=== PATIENT | female | born 1990 | race Caucasian/White ===

== ENCOUNTER 2017-04-29 20:01 | Outpatient (CLI) | payer OTHER ==
[~2017-04-29] VITALS: Ht 149.9 cm; Wt 82.9 kg
[~2017-04-29 20:01] MED LIST: BACTDS PO; CEPH-443 PO; DENIES; HYDR-902 PO; IBUP-1542 PO
[2017-04-29] MEDS ORDERED: FER325 PO (21:34)
[2017-04-29] MEDS ORDERED: PRENAT PO (21:34)
[2017-04-29 21:35] VITALS: BP 125/75; PULSE 97; RESP 19; Ht 149.9 cm; Wt 82.9 kg
--- NOTE | 2017-04-29 22:42 | RADRPT ---
PROCEDURE: OB ultrasound for biophysical profile CLINICAL INDICATION: 27 years of age, female. Lower abdominal wall incisional pain TECHNIQUE: Multiple sonographic images of the pelvis were obtained. Transabdominal view of the gr avid uterus are available for review. The images were reviewed on a PACS workstation. COMPARISON: None available. FINDINGS: MADHURI June 03, 2017 EGA by MADHURI 35 weeks 0 days breathing movement = 2/2 tone = 2/2 motion = 2/2 Amniotic fluid = 2/2 CHITRA = 10 cm Single live intrauterine in cephalic presentation. heart rate measures 148 bpm. Right lateral placenta, grade 2. Focused ultrasound of the anterior uterine wall in the region of the scar demonstrates thi nning of the myometrium measuring 0.2 cm. More superiorly in the uterine body, the anterior myometr ium measures 0.5 cm. IMPRESSION: 1. Single living fetus in cephalic presentation. 2. Biophysical profile = 8/8. 3. CHITRA = 10 cm. 4. Anterior placenta grade 2 5. Focused ultrasound of the anterior uterine wall in the region of the scar demonstrates focal thinning of the myometrium measuring 0.2 cm. If there is concern for myometrial dehiscence, th is could better be evaluated with MRI. Findings were discussed with Linda Harris RN by Dr. Abbey Johns on April 29, 2017 at 10:35 PM. RPTAT: HCTS Physician Trip Date Time Electronically viewed and signed by Physician Trip on 04/29/2017 22:41 CS/
[2017-04-29] MEDS ORDERED: HYDROCODONE/APAP (5/325) TAB PO ONE (23:00)
--- NOTE | 2017-04-29 23:23 | PN ---
Triage Information Date/Time April 29, 2017 Reason for visit: Abd/pelvic pain Weeks of Gestation 35w /Para 8/4 Diabetes: none Additional information 27 y.o. A3 receiving are at [facility] as she is high risk as she has had 4 prior c-sections, had a large" window" in the uterus at her last one and was told not to get again. Pt came today as she has annamaria having pain in the incisional area for a while now and is very worried about what is going on and wasn't reassured at [facility]. +FM. No bleeding or leaking. Doesn't know what contractions feel like. PMHx: none. PSHx: x 4. LSC cholecystectomy. NKDA. Objective Vital Signs Date Time Temp Pulse Resp B/P Pulse Ox O2 Delivery O2 Flow Rate FiO2 04/29/17 21:35 98.1 97 19 125/75 Room Air Heart Rate: 130's Heart Rate Comments With accels to 180 bpm. No decels. Contractions: None Exam Deferred. Results/Medications Imaging Results BPP 04/13. CHITRA 10 cm. VTX. Lower uterine wall appears intact and thin. Disposition: Discharge Assessment/Plan A: IUP at 35 weeks. Prior x 4. False labor. P: Pt was feeling much better once she was reassured that appears well at this time. Pt has a copy of BTL papers and was reminded of the importance of making sure she has them with her at all times. If she starts ragini it is important she immediately go to [facility]. LIBIA BRUMFIELD MD Apr 29, 2017 23:23
--- NOTE | 2017-04-29 23:25 | TRIAGE ---
OB Triage Datetime Report Generated by CPN: 04/29/2017 23:25 Datetime: 04/29/2017 20:16 Time of Arrival: 04/29/2017 19:55 EGA: 35.0 Arrived By: Wheelchair Arrived From: Home Chief Complaint: Abdominal pain. Movement: Present Contractions: Denies/Absent Contractions: NONE Rupture of Membranes: Denies Vaginal Bleeding: None Vaginal Discharge: Denies Recent Sexual Intercouse: Denies Abdominal Trauma: Not Applicable Patient Complaints: Other Time Provider Notified: 04/29/2017 21:05 Provider Notified: Dr. Richardson Initial Plan: CEFM Datetime: 04/29/2017 20:13 Stage of : OB Triage Assessment Type: Triage Maternal Assessment Level of Consciousness: Fully Conscious DTR's/Clonus: DTRs 2+; No Clonus Headache: Denies Blurred Vision: No Respiratory Effort: Unlabored; Regular Rhythm; Equal Expansion Breath Sounds, Left: Clear and Equal Breath Sounds, Right: Clear and Equal Nausea/Vomiting: Denies RUQ Epigastric Pain: Denies Lower Extremities Edema: None Degree: None Upper Extremities Edema: None Degree: None Facial Edema: None Temperature Route: Oral Fall Risk Assessment History of Falling: (0) No Secondary Diagnosis: (0) No Ambulatory Aid: (0) Bedrest/Nurse Assist IV Therapy: (0) No Gait: (0) Normal/Bedrest/Immobile Mental Status: (0) Oriented to Own Ability Fall Score: 0 Fall Risk Score Definition: No Risk: No action required Pain Assessment Pain Scale: 8 Pain Presence: Constant Pain Type: Sharp (Annotations: Pulling down below in her vaginal area) Pain Location: Abdomen; Other (Annotations: incisional) Pain Assessment Comments: Pt states she can't even walk because of the pain.
== END 2017-04-29 23:15 | disposition home or self-care (01) ==
LOC: OBT 20:01 → L-D 20:03 → OBT 23:15
PROVIDERS: ATTEND Obstetrics & Gynecology
DX: O26.893 Other specified pregnancy related conditions, third trimester (principal); Z3A.35 35 weeks gestation of pregnancy; R10.2 Pelvic and perineal pain
CPT/HCPCS: 76818; Z7500; G0463

== ENCOUNTER 2017-05-21 12:33 | Inpatient (IN) | payer OTHER ==
[~2017-05-21] VITALS: Ht 149.9 cm; Wt 83.0 kg
[~2017-05-21 12:33] MED LIST changes: -BACTDS PO; -CEPH-443 PO; -DENIES; +FER325 PO; -HYDR-902 PO; -IBUP-1542 PO; +PRENAT PO
[2017-05-21 13:06] VITALS: Ht 149.9 cm; Wt 83.0 kg
[2017-05-21] MEDS ORDERED: LACTATED RINGER'S 1,000 ML IV SCH (13:28)
[2017-05-21] MEDS ORDERED: OXYTOCIN 30 UNITS/LR 500 ML IV SCH (13:30)
[2017-05-21] MEDS ORDERED: CARBOPROST 250 MCG INJ IM PRN ×2 (13:30→21:00)
[2017-05-21] MEDS ORDERED: OXYTOCIN 30 UNITS/LR 500 ML IV PRN ×2 (13:30→21:00)
[2017-05-21] MEDS ORDERED: CEFAZOLIN 2 GM/50 ML (PMX) 50 ML IV SCH (13:30)
[2017-05-21] MEDS ORDERED: MISOPROSTOL 200 MCG TAB PR PRN ×2 (13:30→21:00)
[2017-05-21] MEDS ORDERED: METHYLERGONOVINE 0.2 MG INJ IM PRN ×2 (13:30→21:00)
[2017-05-21 15:00] LABS: BASOPHILS % 0.4 % (0.0-2.0); EOSINOPHILS # 0.2 10^3/ul (0.0-0.5); EOSINOPHILS % 1.9 % (0.0-7.0); HEMATOCRIT 29.9 % (37.0-47.0); HEMOGLOBIN 9.6 g/dl (12.0-16.0); LYMPHOCYTES % 20.1 % (15.0-51.0); MEAN CORPUSCULAR HEMOGLOBIN 25.7 pg (29.0-33.0); MEAN CORPUSCULAR HGB CONC 32.1 g/dl (32.0-37.0); MEAN CORPUSCULAR VOLUME 80.2 fl (82.0-101.0); MEAN PLATELET VOLUME 9.2 fl (7.4-10.4); MONOCYTE # 0.8 10^3/ul (0.3-0.9); MONOCYTES % 8.1 % (0.0-11.0); NEUTROPHIL # 6.8 10^3/ul (1.6-7.5); NEUTROPHILS % 68.9 % (39.0-77.0); PLATELET COUNT 360 10^3/UL (140-415); RED BLOOD COUNT 3.73 10^6/ul (4.20-5.40); RED CELL DISTRIBUTION WIDTH 16.2 % (11.5-14.5); WHITE BLOOD COUNT 9.9 10^3/ul (4.8-10.8)
[2017-05-21 15:16] LABS: INR 0.95; PROTIME 12.7 Sec (12.2-14.2)
[2017-05-21 15:17] LABS: PARTIAL THROMBOPLASTIN TIME 27.7 Sec (25.0-35.0)
[2017-05-21 15:24] LABS: ADD UMIC YES; UR ASCORBIC ACID NEGATIVE (NEGATIVE); UR BACTERIA FEW /HPF (NONE SEEN); UR BILIRUBIN (Dip) NEGATIVE (NEGATIVE); UR BLOOD (Dip) NEGATIVE (NEGATIVE); UR CLARITY SLIGHTLY CLOUDY (CLEAR); UR COLOR YELLOW (YELLOW); UR GLUCOSE (Dip) NEGATIVE (NEGATIVE); UR KETONES (Dip) TRACE mg/dL (NEGATIVE); UR LEUKOCYTE ESTERASE (Dip) 3+ Leu/ul (NEGATIVE); UR NITRITE (Dip) POSITIVE (NEGATIVE); UR RBC 1 /HPF (0-5); UR SPECIFIC GRAVITY (Dip) 1.015 (1.003-1.030); UR SQUAMOUS EPITHELIAL CELL FEW /HPF (FEW); UR TOTAL PROTEIN (Dip) NEGATIVE (NEGATIVE); UR UROBILINOGEN (Dip) NEGATIVE (NEGATIVE); UR WBC CLUMPS FEW /HPF (NONE SEEN)
[2017-05-21] MEDS ORDERED: OXYTOCIN 30 UNITS/LR 500 ML BAG IV ONE (16:30)
[2017-05-21] MEDS ORDERED: CEFAZOLIN 1 GM INJ ONE (16:30)
[2017-05-21] MEDS ORDERED: ONDANSETRON 4 MG INJ ONE (16:46)
[2017-05-21] MEDS ORDERED: morphine SULFATE/PF (10 MG/10 ML) INJ ONE (16:46)
[2017-05-21] MEDS ORDERED: PHENYLephrine (100 MCG/ML) 5ML SYG ONE ×2 (16:46→17:23)
[2017-05-21] MEDS ORDERED: FENTAnyl 50 MCG/ML VIAL ONE (17:22)
--- NOTE | 2017-05-21 17:55 | OPPN ---
Date/Time of Note Date/Time of Note DATE: 05/21/17 TIME: 17:53 Operative Report Free Text/Dictation Previous c/sectionx4 in labor Multipara desires sterilization Preoperative Diagnosis Previous c/sectionx4 in labor Multipara desires sterilization Postoperative Diagnosis Previous c/sectionx4 in labor Multipara desires sterilization Operation/Procedure Performed Repeat c/section +Bilateral tubal ligation Provider: VIRGEN HORN M.D. occupational therapist's assistant: PAIGE SOLANO MD Anesthesia Type: spinal Estimated blood loss: other (500) Transfusion Required: no Specimen: none Grafts/Implants: none Complications: no VIRGEN HORN M.D. May 21, 2017 17:55
--- NOTE | 2017-05-21 17:56 | HP ---
Date/Time of Note Date/Time of Note DATE: 05/21/17 TIME: 17:55 OB - History Hx of Present Free Text/Dictation Previous c/sectionx4 in labor Multipara desires sterilization : 5 Para: 4 Care: Good Care Ultrasounds: Normal mid trimester US Obstetrical Complications: None Medical Complications: None Past Family/Social History * Past Medical, Surgical, Family and Obstetric Histories reviewed from chart. OB Admission Exam Physical Exam Abdomen: WNL Reflexes: Normal Cervical Dilatation: 2cm Effacement: 25% Station: -2 Membranes: Intact Heart Rate: 140's Accelerations: Accelerations Present Decelerations: No Decelerations Varibility: Moderate Last 72 hours Lab Results CBC & BMP 05/21/17 14:10 OB Assessment/Plan Reason for admission: section Plan: Section VIRGEN HORN M.D. May 21, 2017 17:56
--- NOTE | 2017-05-21 17:58 | OPR ---
Operative Report Planned Procedure Free Text/Dictation Previous c/sectionx4 in labor Multipara desires sterilization Procedure date May 21, 2017 Procedure(s) Repeat c/section+ Bilateral tubal ligation Performed by gage Assisting provider: PAIGE SOLANO MD Anesthesiologist: KARUNA SUAZO MD Pre-procedure diagnosis Previous c/sectionx4 in labor Multipara desires sterilization Anesthesia Type: spinal Procedure Description Under satisfactory [] anesthesia, the patient was prepped and draped and placed in a supine position, tilted to the left. Pfannenstiel incision was made, carried through the subcutaneous tissue. Bleeders brought under control with electrocautery. Fascia incised to the length of the incision. Rectus muscles from the fascia, divided midline. Peritoneum exposed, entered through a transverse incision. Exploration of abdomen revealed gravid uterus. Bladder flap was developed. Transverse incision was made in the lower segment of the uterus. Amniotic sac ruptured. [] amniotic fluid noted. [] Nasal oropharyngeal suction was performed. The baby was handed to the team for immediate attention. The placenta was delivered manually intact. Uterine cavity was cleaned with wet sponge and drainage established. Uterus closed in 2 layers using [] in continuous fashion. Peritoneal cavity irrigated with warm saline. Sponge, needle and instrument count reported to be correct. Abdominal peritoneum closed with [] continuously. Rectus muscle approximated with []. Fascia closed with [], and skin closed with dermoband. Estimated blood loss [600 ]mL. Urine bag contained []mL of urine A large window seen in lower uterine segment Post-Procedure Findings: Live Baby [], Apgars [] and [], weight [], position [], [] presentation []cord. Estimated blood loss: other (500) Grafts/Implants: no Complication(s): no Pt Condition post procedure: stable Disposition: PACU Physician Certification I, the undersigned physician, hereby certify that I have discussed the procedure described in this consent form with this patient (or the patient's legal escrow representative), including: * The risk and benefits of the procedure; * Any adverse reactions that may reasonably be expected to occur; * Any alternative efficacious methods of treatment which may be medically viable ; * The potential problems that may occur during recuperation; * Potential for blood transfusion and associated risks/benefits; and * Any research or economic interest I may have regarding this treatment. I further certify that the patient/legally responsible person was encouraged to ask question and that all questions were answered. VIRGEN HORN M.D. May 21, 2017 17:58
[2017-05-21] MEDS ORDERED: KETOROLAC 30 MG INJ ONE (18:33)
[2017-05-21] MEDS: KETOROLAC 30 MG INJ IV PRN (18:53)
[2017-05-21] MEDS ORDERED: ONDANSETRON 4 MG INJ IV PRN (19:00)
[2017-05-21] MEDS ORDERED: DIPHENHYDRAMINE 50 MG INJ IV PRN (19:00)
[2017-05-21] MEDS ORDERED: NALOXONE (0.4 MG/ML) INJ IV PRN (19:00)
[2017-05-21] MEDS: morphine 2 MG INJ IV PRN (19:51)
[2017-05-21 20:30] VITALS: BP 110/67; PULSE 77; RESP 21
[2017-05-21] MEDS: SENNA/DOCUSATE NA (8.6MG/50MG) TAB PO SCH (21:00)
[2017-05-21] MEDS ORDERED: LANOLIN 7 GM TUBE TOP PRN (21:00)
[2017-05-21] MEDS: LACTATED RINGER'S 1,000 ML IV SCH (22:08)
[2017-05-21 23:45] VITALS: BP 108/63; PULSE 91; RESP 20
[2017-05-22 03:30] VITALS: BP 95/67; PULSE 85; RESP 18
[2017-05-22] MEDS: KETOROLAC 30 MG INJ IV PRN ×2 (05:20→12:14)
[2017-05-22] MEDS: LACTATED RINGER'S 1,000 ML IV SCH ×2 (06:01→13:55)
[2017-05-22 08:00] VITALS: BP 108/62; PULSE 89; RESP 18
[2017-05-22] MEDS: SENNA/DOCUSATE NA (8.6MG/50MG) TAB PO SCH ×2 (09:04→21:18)
[2017-05-22 09:27] LABS: BASOPHILS % 0.2 % (0.0-2.0); EOSINOPHILS # 0.2 10^3/ul (0.0-0.5); EOSINOPHILS % 1.6 % (0.0-7.0); HEMATOCRIT 28.4 % (37.0-47.0); HEMOGLOBIN 8.9 g/dl (12.0-16.0); LYMPHOCYTES # 1.5 10^3/ul (0.8-2.9); LYMPHOCYTES % 16.2 % (15.0-51.0); MEAN CORPUSCULAR HEMOGLOBIN 25.2 pg (29.0-33.0); MEAN CORPUSCULAR HGB CONC 31.3 g/dl (32.0-37.0); MEAN CORPUSCULAR VOLUME 80.5 fl (82.0-101.0); MEAN PLATELET VOLUME 9.4 fl (7.4-10.4); MONOCYTE # 0.5 10^3/ul (0.3-0.9); MONOCYTES % 5.7 % (0.0-11.0); NEUTROPHILS % 75.9 % (39.0-77.0); PLATELET COUNT 329 10^3/UL (140-415); RED BLOOD COUNT 3.53 10^6/ul (4.20-5.40); RED CELL DISTRIBUTION WIDTH 16.4 % (11.5-14.5); WHITE BLOOD COUNT 9.3 10^3/ul (4.8-10.8)
[2017-05-22 12:00] VITALS: BP 133/68; PULSE 88; RESP 18
[2017-05-22] MEDS: IBUPROFEN 600 MG TAB PO SCH ×3 (12:00→23:47)
[2017-05-22] MEDS: morphine 2 MG INJ IV PRN (15:44)
[2017-05-22 16:00] VITALS: BP 127/71; PULSE 91; RESP 16
[2017-05-22 20:30] VITALS: BP 117/56; RESP 18
[2017-05-23 04:10] VITALS: BP 118/61; PULSE 77; RESP 18
[2017-05-23] MEDS: IBUPROFEN 600 MG TAB PO SCH ×3 (05:32→17:58)
[2017-05-23 08:03] VITALS: BP 121/66; PULSE 80; RESP 18
[2017-05-23] MEDS: SENNA/DOCUSATE NA (8.6MG/50MG) TAB PO SCH ×2 (09:11→21:00)
[2017-05-23] MEDS: OXYCODONE/ACETAMINOPHEN (5/325) TAB PO PRN ×2 (10:08→20:01)
[2017-05-23 16:00] VITALS: BP 129/72; PULSE 65; RESP 19
[2017-05-23 19:45] VITALS: BP 126/66; PULSE 84; RESP 18
[2017-05-24 03:30] VITALS: BP 133/74; PULSE 80; RESP 18
[2017-05-24] MEDS: IBUPROFEN 600 MG TAB PO SCH ×3 (05:34→11:35)
[2017-05-24 08:00] VITALS: BP 131/72; PULSE 77; RESP 18
[2017-05-24] MEDS ORDERED: DIPHTH/TET/ACEL PERTUSS (ADULT) 0.5 ML VIAL IM* ONE (09:00)
[2017-05-24] MEDS: SENNA/DOCUSATE NA (8.6MG/50MG) TAB PO SCH (09:10)
--- NOTE | 2017-05-24 12:07 | QN ---
Documentation Comment this is late entry for 05/23 pod2 pt doing well vss exam wnl a/p pod 2 continue care PÉREZ MCDONALD MD May 24, 2017 12:07
--- NOTE | 2017-05-24 12:24 | PD.PPDC ---
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
--- NOTE | 2017-05-24 12:25 | DS ---
Date/Time of Note Date/Time of Note DATE: 05/24/17 TIME: 12:24 Obstetrical Discharge Record Final Diagnosis Final Diagnosis: Term delivered Section Section: Repeat Primary Indication repeat c/section with BTL Condition on Discharge Physical Assessment Voiding: Yes Bowel Movement: Yes Breast: Soft, non-tender Fundus: Firm Abdomen and Incision: Calf Tenderness: No Patient Condition: Stable PÉREZ MCDONALD MD May 24, 2017 12:25
--- NOTE | 2017-05-25 09:09 | HP ---
DATE OF ADMISSION: 05/21/2017 HISTORY OF PRESENT ILLNESS: The patient is a 27-year-old, 5, para 4, at 37+ weeks gestational age with history of 4 previous C-sections, status post falling, admitted to the labor and delivery with chief complaint of contractions and abdominal pain. PAST MEDICAL HISTORY: Denies. PAST SURGICAL HISTORY: 4 previous C-sections. ALLERGIES: NKDA. PHYSICAL EXAMINATION: VITAL SIGNS: Stable. GENERAL: Exam normal. ABDOMEN: Not tender, not distended. Gravid genital exam. Cervix was dilated 2 cm, 25 percent, and -2. ASSESSMENT AND PLAN: The patient is a 27-year-old, 5, para 4, at 37+ weeks gestational age admitted in labor. The patient consented for repeat section and bilateral tubal ligation. The risk and benefit discussed. Consent signed. Patient was taken to the operating room. Dictated By: Christian Berman MD /[email or web address]/[email or web address] /Document#: [id number]
[2017-05-25 13:46] LABS: RUBELLA ANTIBODY - IGG 1.47 index
== END 2017-05-24 13:35 | disposition home or self-care (01) | DRG 766 ==
LOC: OBT 12:33 → L-D 12:35 → OBT 13:26 → L-D 16:38 → PP1 20:19
PROVIDERS: ADMIT Obstetrics & Gynecology; ATTEND Obstetrics & Gynecology
PROC: 0UB70ZZ Excision of Bilateral Fallopian Tubes, Open Approach (ICD-10-PCS; 2017-05-21)
PROC: 10D00Z1 Extraction of Products of Conception, Low, Open Approach (ICD-10-PCS; principal; 2017-05-21 17:00)
DX: O34.211 Maternal care for low transverse scar from previous cesarean delivery (principal); Z30.2 Encounter for sterilization; Z37.0 Single live birth; Z3A.37 37 weeks gestation of pregnancy
CPT/HCPCS: 81001; 85025; 85610; 85730; 86592; 86703; 86762; 86850; 86900; 86901; 86920; 87340; 88302; 90715; 94760; 99464; G0463; J0690; J1200; J1885; J2270; J2274; J2370; J2405; J2590; J3010; J7120

== ENCOUNTER 2018-11-11 23:22 | Emergency (ER) | payer OTHER ==
[~2018-11-11] VITALS: Wt 81.5 kg
[2018-11-11 23:31] VITALS: BP 144/65; PULSE 79; RESP 21
--- NOTE | 2018-11-12 03:00 | ERD ---
ER Documentation Chief Complaint Chief Complaint BIB SELF, CC: URINARY RETENTION AND DYSURIA X 4DAYS, HPI This is a 28-year-old female who presents emergency department with complaints of dysuria, urinary distention for about 4 days. LMP: Stated it was a few days ago. x3. Denies headache, head injury, loss of consciousness, dizziness, neck pain, neck stiffness, throat pain, difficulty swallowing, difficulty breathing lying flat, shoulder pain, chest pain, back pain, abdominal pain, nausea, vomiting, constipation, diarrhea, urinary symptoms, or possibility being , loss of bowel and bladder control, trauma, injury, falls, difficulty walking due to pain, numbness or tingling sensation, calf pain, recent travel, recent major surgery in the last 3 weeks, calf pain, recent long travel, recent exposure to any illness, recent antibiotic use in the last 3 months, fever, chills, seizures. Past medical history: Surgical history: Social: Denies smoking, use of alcoholic beverages, use of illegal drugs. ROS All systems reviewed and are negative except as per history of present illness. Medications Home Meds Reported Medications Ferrous Sulfate* (Ferrous Sulfate*) 325 Mg Tabec, 325 MG PO DAILY, TAB 04/29/17 Multivit/Min/Fol Ac/Iron/Pren* ( S*) 1 Tab Tab, 1 TAB PO DAILY, TAB 04/29/17 Allergies Allergies: Coded Allergies: No Known Allergy (Verified , 04/29/17) PMhx/Soc History of Surgery: No Anesthesia Reaction: No Hx Neurological Disorder: No Hx Respiratory Disorders: No Hx Cardiac Disorders: No Hx Psychiatric Problems: No Hx Miscellaneous Medical Probl: Yes (gall stones, ) Hx Alcohol Use: No Hx Substance Use: No Hx Tobacco Use: Yes Smoking Status: Current every day smoker Physical Exam Vitals Physical Exam Const: No acute distress Head: Atraumatic Eyes: Normal Conjunctiva ENT: Normal External Ears, Nose and Mouth. Neck: Full range of motion. No meningismus. Resp: Clear to auscultation bilaterally Cardio: Regular rate and rhythm, no murmurs Abd: Soft, non tender, non distended. Normal bowel sounds. Negative Bullock sign. Negative Larimore sign (heel jar test). Negative psoas sign. Negative Rovsing sign. No CVA tenderness. Able to jump twice without developing lower abdominal pain. Skin: No petechiae or rashes Back: No midline or flank tenderness Ext: No cyanosis, or edema Neur: Awake and alert. No neurological deficits. Psych: Normal Mood and Affect Results 24 hrs Laboratory Tests Test 11/12/18 02:56 11/12/18 02:58 11/12/18 03:12 Bedside Urine pH (LAB) 6.0 Bedside Urine Protein (LAB) 2+ Bedside Urine Glucose (UA) Negative Bedside Urine Ketones (LAB) Negative Bedside Urine Blood 3+ Bedside Urine Nitrite (LAB) Positive Bedside Urine Leukocyte Esterase (L 1+ POC Beta HCG, Qualitative NEGATIVE Urine Color YELLOW Urine Clarity CLOUDY Urine pH 6.0 Urine Specific Casey 1.024 Urine Ketones NEGATIVE mg/dL Urine Nitrite POSITIVE mg/dL Urine Bilirubin NEGATIVE mg/dL Urine Urobilinogen NEGATIVE mg/dL Urine Leukocyte Esterase 1+ Carol/ul Urine Microscopic RBC > 182 /HPF Urine Microscopic WBC 55 /HPF Urine Squamous Epithelial Cells FEW /HPF Urine Bacteria FEW /HPF Urine Mucus FEW /HPF Urine Hemoglobin 3+ mg/dL Urine Glucose NEGATIVE mg/dL Urine Total Protein 1+ mg/dl Procedures/MDM Diagnostic tests: POC urine : Urinalysis: Culture urine: Treatment: Patient eloped at around 03:37. Departure Diagnosis: Primary Impression: Patient left without being seen Condition: Stable LUPILLO DHILLON Nov 12, 2018 03:00
== END 2018-11-12 04:11 | disposition left against medical advice (07) ==
LOC: FTE 23:22
DX: R30.0 Dysuria (principal); R33.9 Retention of urine, unspecified; F17.210 Nicotine dependence, cigarettes, uncomplicated
CPT/HCPCS: 81001; 81025; 87086; Z7502; 81003; 99283

== ENCOUNTER 2018-11-12 07:36 | Emergency (ER) | payer OTHER ==
[~2018-11-12] VITALS: Ht 149.9 cm; Wt 76.7 kg
[2018-11-12 07:39] VITALS: BP 153/93; PULSE 101; RESP 16; Ht 149.9 cm; Wt 76.7 kg
== END 2018-11-12 08:52 | disposition left against medical advice (07) ==
LOC: FTE 07:36
DX: Z53.21 Procedure and treatment not carried out due to patient leaving prior to being seen by health care provider (principal)

== ENCOUNTER 2019-03-14 19:31 | Emergency (ER) | payer SELFPAY | END 2019-03-14 19:43 | disposition left against medical advice (07) | LOC: E/R 19:31 | DX: Z53.21 Procedure and treatment not carried out due to patient leaving prior to being seen by health care provider (principal) ==